=== PATIENT | male | born 1950 | race Caucasian/White ===

== ENCOUNTER → 2016-09-05 | Outpatient (CLI) | payer BC ==
[~2016-09-05] MED LIST: ACETAMINOPHEN650 M2 PO; AZITHROMYCIN500 MG PO; BYSTOLIC2.5 MG PO; CLOPIDOGREL75 MG PO; COQ-10100 MG PO; CRESTOR20 MG PO; GLUCOPHAGE1000 MG PO; IPRAT-ALBUT 0.5-3 ML INH; NEURONTIN300 MG PO; NITROSTAT0.4 MG SL; ONGLYZA5 MG PO; PREDNISONE10 MG PO; PRINIVIL OR ZES10 MG PO; PROAIR RESPICL90 MCG INH; RANEXA ER500 MG PO; SOMA350 MG PO; SURFAK240 MG PO; TESSALON PERLE100 MG PO; TOUJEO SOL300 UNIT/1 SUB-Q; VIAGRA100 MG PO; VITAMIN D-32000 UNI1 PO
--- NOTE | ~2016-09-05 | CON ---
PATIENT'S NAME: KETAN RODNEY [facility] AGE: 66 Y [address] ROOM: [place] [address] LOCATION: [facility] ADMIT DATE: 09/05/2016 Consultation DISCHARGE DATE: FAMILY PHYSICIAN: BRENDAN MENG MD ATTENDING PHYSICIAN: BRENDAN MENG DATE OF CONSULTATION: 09/05/2016 Advj-an-dshj encounter time is 10:00 a.m. to 11:00 a.m. This patient was referred to me by Dr. Brendan Meng for diabetic self- management education. He is a 66-year-old white male, 5 feet 7 inches tall, weight 213.8 pounds, BMI 33.87, waist circumference is 45.5 inches, blood pressure 142/76. He is a type 2 diabetic and has been so for about the last 12 years. He was diagnosed when he first started to see Dr. Damon. His other problems include lumbosacral back pain, coronary artery disease, constipation, COPD, cough, hypertension, hyperlipidemia, osteoarthritis, nocturia. His current medications include: 1. Bqxz-vuf-qfaxahv Mucinex 1 to 2 tablets twice daily as needed for congestion. 2. Aspirin 325 mg 3 of them daily as needed for back pain. 3. Nitrostat 0.4 mg sublingual every 5 minutes for chest pain as needed. 4. Ranexa 500 mg daily. 5. Rosuvastatin 20 mg daily. 6. Bystolic 2.5 mg daily. 7. Xfzsjoqgjk35 mg daily. 8. Jardiance 10 mg daily. 9. Metformin 1000 mg 2 times daily. 10. Toujeo 300 units per mL 50 units at bedtime daily. 11. CoQ10 100 mg daily. 12. Viagra 100 mg 1 hour before activity as needed. 13. Vitamin D3 2000 units 1 capsule twice a day. 14. DuoNeb via nebulizer every 4 hours as needed for cough. 15. ProAir HFA 108 mcg per actuation 1 puff every 4 to 6 hours as needed for wheezing. 16. Colace 100 mg 2 capsules daily. 17. Milk of magnesia 30 mL daily p.r.n. constipation. He has received diabetic self-management education before through therapist asst Mark Zuñiga, therapist asst CDE several years ago. He has also previously done the Medifast diet and lost 40 pounds on that. His most recent lab data was obtained on June 25, 2016, with an A1c of 12.1%, fasting glucose was 170. Total cholesterol 132, HDL 37, triglycerides 170, LDL 61. A microalbumin was not done. He is spilling 1+ protein on dipstick urinalysis. His potassium is 4.2, BUN 19, creatinine 1.03 with an EGFR of 77.5. I advised him that his target goal for the A1c is less than 7, his target fasting glucose would be 90 PATIENT'S NAME: KETAN RODNEY [facility] AGE: 66 Y [address] ROOM: [place] [address] LOCATION: [facility] ADMIT DATE: 09/05/2016 Consultation DISCHARGE DATE: FAMILY PHYSICIAN: BRENDAN MENG MD ATTENDING PHYSICIAN: BRENDAN MENG to 120, and his target 2-hour postprandial would be less than 150. He does have an Accu-Chek Es glucometer that is brand new. He checks 1 time a day in the fasting state. He has had hypoglycemia previously. It happened about a year ago, probably around noon time or 1 o'clock in the afternoon. He states that he got quite nauseated, sweaty, dizzy, and he treated that with some orange juice and seemed to get better right away. We did discuss the rule of 15 for treating hypoglycemia, and he was given a handout. We discussed both the symptoms of hyper and hypoglycemia. We also discussed the pathophysiology of type 2 diabetes. His exercise limitation is that he has chronic severe back pain. He had back surgery in March of [address] Nichols. He notes that his pain is no better after surgery than it was prior to surgery. He has pain that goes down into his right hip, down to the right knee. He notes that ever since he had his heart surgery and they removed vein from the right lower extremity, he has been numb from the knee down to his ankle, though the pain does not go any further in that leg. He does try to walk as much as he can at least 3 to 4 days a week at about 20 to 30 minutes or as much as he can tolerate. He says he then pays for it for the next day or two after walking very far with more pain. He does not see the dentist very often. He says he has 12 to 13 teeth left. He has had several caps and bridges, but he lost a lot of teeth. He is trying to hang onto the bridge that he has. He really does not want to do dentures. He does not have any gum disease, but issues with his teeth. He has an old history of smoking. His last eye exam has been 2 years ago. He saw an revenue settlements administrator in [place] and has was not happy with that exam. He was encouraged to go back and see Dr. Barahona who he used to see for his eye exams. I advised him he needs to get a yearly eye exam and make sure that she knows he is diabetic. I did perform a foot exam today. His feet are quite flat. He has nice hair growth on his toes. His toe nails are well trimmed except for a few areas that are kind of snaggly. His toenails were trimmed up today. He was able to feel the monofilament in all areas of his feet. His posterior tibial and dorsalis pedis pulses wer 2+. He has no open sores or calluses. It does not look like he has any problems as far as his shoes rubbing. He does note that his right foot is quite as about a half a size to a size bigger than his left foot, so when he buys shoes, he has to buy them for his right foot. He does have shoes today that have a wide toe box. There are no signs of any impingement on the foot or any redness where it may be rubbing. His current occupation is at [employer] for [employer]. 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 He works about 50 hours per week in those 2 jobs. 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 He lives at home with his . His PATIENT'S NAME: KETAN RODNEY [facility] AGE: 66 Y [address] ROOM: [place] [address] LOCATION: [facility] ADMIT DATE: 09/05/2016 Consultation DISCHARGE DATE: FAMILY PHYSICIAN: BRENDAN MENG MD ATTENDING PHYSICIAN: BRENDAN MENG prepares all their meals. He goes out to eat about 2 times a month, and his favorite thing is steak. He does consume alcohol. He has beer 3 to 4 times a week, usually Kiel Hodge and some bourbon and water. He quit smoking in 2005 prior to his coronary artery bypass surgery, and he has not smoked since that time. He also likes to go to [place] in the winter time. 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 He notes that his weekday and weekends are about the same. There is not much in the way of schedule changes as far as his eating and taking his medicines are concerned. He does not really have food related issues. He does note that beer and bourbon tend to make him very congested in his nose. He notes that he does have a lot of problems with constipation especially with not being able to move with his back and taking some pain medications. So on his own, he added Colace 100 mg b.i.d. as well as some occasional milk of magnesia. He does take his vitamin D supplement. He is not on a multivitamin. As far as the diabetes is concerned, he assumed that he would get it because his whole family has a history of diabetes. The only thing that frustrates him a lot is how expensive his drugs are. His insurance has been good about covering things, and he has cards that will help him up until the time he is age 67. We will have to work on things later. We did talk about progression of type 2 diabetes and why things need to change. He gets up between 6 and 6:30 in the morning. He eats breakfast between 7:30 and 8:00 and has either a banana, some oatmeal,or wheaties or cheerios, sometimes an egg on toast with a little bit of cheese on it. He does not eat a midmorning snack. For lunch, he will have a sandwich with 2 slices of bread and some lunch meat or leftovers, and he will occasionally will have some chips. Dinner is between 6 and 7:30. His does cook for that meal because that is the largest one. She will grill chicken, fish, or pork, and then serve some sort of a green vegetable in the form of asparagus green beans or broccoli and occasionally a potato but not very often. He does have a tossed salad quite a bit, and he uses ranch dressing. If he is going to have a snack, he will have some popcorn or raw almonds. For beverages of choice besides the beer and bourbon, he drinks 2% milk about two 12-ounce glass per day, water, iced tea if he has it before 5 p.m. He does not consume any pop whatsoever. He occasionally will have 2 slices of [employer] pizza on a Friday night if his does not feel like cooking, and he does say that he limits himself to 2 slices. Bedtime is between 10:30 and 11, and he does not have a bedtime snack. We discussed the plate method, how to estimate portion sizes, and that he should be consuming between 135 to 195 grams of carbohydrate today to lose about 1 pound per week. He says that he can lose weight rather quickly if he wants to; however, I cautioned him to try to keep it to the 1 to 2 pounds a week as that stays off better, and if we change his sugar too rapidly, it could affect his eyes. He seemed to understand that concept. We discussed label reading, and he should be looking at the portion size, how many servings are in this particular product, and then look at the total carbohydrate and also look at the fiber PATIENT'S NAME: KETAN RODNEY [facility] AGE: 66 Y [address] ROOM: [place] [address] LOCATION: [facility] ADMIT DATE: 09/05/2016 Consultation DISCHARGE DATE: FAMILY PHYSICIAN: BRENDAN MENG MD ATTENDING PHYSICIAN: BRENDAN MENG. He was encouraged to get at least 3 g of fiber per serving as that lessens the spike on his blood sugars when he is eating. I advised him to write down the 20 most common things he used with the portion sizes, and we could calculate the carbohydrate for him so that when he eats, he would be able to assess how many carbs he is eating. He does use some cottage cheese that he likes, as well as yogurt. We discussed possibly having use some bahamian yogurt at bedtime. I asked him to cut down on his milk just a little bit, so may be 8 ounces with each meal, breakfast, and lunch as 8 ounces of milk has 12 g of carbohydrate. He notes that in May, he was pretty sick with his lungs, and he had to be on prednisone, and that is when sugars went up and things just kept getting worse, and Dr. Meng put him on insulin. He is unsure what he is going to be doing as far as his back is concerned, and he may need to have some epidural injections. I encouraged him to call us if that were the case, and we would work out something to possibly do a sliding scale with some mealtime insulin to help with sugars for those 2 to 3 weeks that he may have the effects from the steroids. He really thought maybe that the diabetic education today was a little redundant from what he had had previously, but he is very attentive and he is asking appropriate questions. I wish there was something we can do to help him with his back. He is going to contact Dr. Nichols. If things do not improve there, he may also seek a second opinion. He also notes that it is about time for him to go back and see Dr. Dong. He notes that he ran out of his Ranexa prescription, and it took a week or so to get that refilled, and he did not really think Ranexa was helping much, but when he was off for that week, he did have a little chest discomfort, and when he restarted that, pain went away, so he now realizes that it is a good medicine for him. His blood sugars were downloaded from his glucometer, he had 21 reading on his glucometer. He has 7-day averages now 146, 14-day averages 153, 30-day averages 176, and 90- day averages is 228. His highest blood sugar reading in his glucometer was 245, and the lowest was 123 with an average of 179. He will continue checking fasting blood sugars. I have told him to do occasional check in the evening or later afternoon after lunch just to see what his postprandial blood sugars are doing. He seemed to concur with that. He is doing much better than he was previously as he has in the last 30 days been in the range almost 60% of the time. He has an appointment with Dr. Meng some time in September. He will follow up at that time. He is to call me if he has any further questions, or if he ends up having to have an epidural so that we can help him though with his blood sugars. Thank you Dr. Meng for this interesting consultation. CHRISTOFER GARCIA RN CDE PATIENT'S NAME: KETAN RODNEY [facility] AGE: 66 Y [address] ROOM: [place] [address] LOCATION: [facility] ADMIT DATE: 09/05/2016 Consultation DISCHARGE DATE: FAMILY PHYSICIAN: BRENDAN MENG MD ATTENDING PHYSICIAN: BRENDAN MENG/romina /[id number] d: [birth year] t: 09/06/161920, CONSULTATION REPORT
== END ==
LOC: GDIC 11:13
DX: E11.65 Type 2 diabetes mellitus with hyperglycemia (principal); J44.9 Chronic obstructive pulmonary disease, unspecified; I10 Essential (primary) hypertension; E78.5 Hyperlipidemia, unspecified; I25.10 Atherosclerotic heart disease of native coronary artery without angina pectoris; Z79.82 Long term (current) use of aspirin; Z79.899 Other long term (current) drug therapy
CPT/HCPCS: G0108